=== PATIENT | male | born 1940 | race Caucasian/White ===

== ENCOUNTER 2018-06-23 11:07 | Emergency (ER) | payer OTHER, MEDICARE ==
[~2018-06-23] VITALS: Ht 162.6 cm; Wt 90.7 kg
[~2018-06-23 11:07] MED LIST: HYDR-4100 PO; NOR10 PO
[2018-06-23 11:10] VITALS: BP_SYST 150
[2018-06-23 12:12] LABS: BASOPHILS # (AUTO) 0.1 K/uL (0.0-0.2); BASOPHILS % (AUTO) 1.1 % (0.0-2.0); EOSINOPHILS % (AUTO) 0.2 % (0.0-4.0); HEMATOCRIT 44.9 % (36-54); HEMOGLOBIN 14.5 g/dL (14.0-18.0); LYMPHOCYTES # (AUTO) 1.1 K/uL (1.0-5.5); LYMPHOCYTES % (AUTO) 17.1 % (20.5-51.5); MEAN CORPUSCULAR HEMOGLOBIN 30 pg (27-31); MEAN CORPUSCULAR HGB CONC 32 % (32-36); MEAN CORPUSCULAR VOLUME 92 fL (79.0-98.0); MONOCYTES # (AUTO) 0.5 K/uL (0.0-1.0); MONOCYTES % (AUTO) 7.2 % (1.7-9.3); NEUTROPHILS # (AUTO) 4.8 K/uL (1.8-7.7); NEUTROPHILS % (AUTO) 74.4 % (40.0-70.0); PLATELET COUNT (AUTO) 282 K/uL (130-430); RED BLOOD CELL COUNT(AUTO) 4.87 MIL/uL (4.2-6.2); RED CELL DISTRIBUTION WIDTH 12.3 % (9.0-15.0); WHITE BLOOD COUNT (AUTO) 6.5 K/uL (4.8-10.8)
[2018-06-23 12:27] LABS: ANION GAP 8 (5-15); CALCIUM 9.8 mg/dL (8.4-11.0); CHLORIDE 103 mmol/L (98-107); CREATININE 1.32 mg/dL (0.55-1.30); GLUCOSE 127 mg/dL (70-99); POTASSIUM 4.2 mmol/L (3.5-5.1); SODIUM SERUM 137 mmol/L (136-145); UREA NITROGEN, BLOOD 18 mg/dL (8-21)
[2018-06-23 12:31] LABS: ALANINE AMINOTRANSFERASE 23 U/L (12-78); AMYLASE 38 U/L (0-100); ASPARTATE AMINOTRANSFERASE 23 U/L (10-37); LIPASE 123 U/L (73-393); TOTAL BILIRUBIN 0.8 mg/dL (0.0-1.0)
[2018-06-23 12:33] LABS: INR 1.1 (0.80-1.20); PROTHROMBIN TIME 10.9 SECS (9.5-12.5)
[2018-06-23 13:20] LABS: BILIRUBIN,URINE 1+ (NEGATIVE); CLARITY/URINE CLEAR (CLEAR); COLOR,URINE YELLOW (YELLOW); GLUCOSE,URINE NEGATIVE (NEGATIVE); KETONES,URINE 2+ (NEGATIVE); LEUKOCYTE ESTERASE ,URINE NEGATIVE (NEGATIVE); NITRITE, URINE NEGATIVE (NEGATIVE); PH,URINE 6.5 (5.0-8.0); PROTEIN URINE NEGATIVE (NEGATIVE)
[2018-06-23 13:23] LABS: BLOOD, URINE TRACE (NEGATIVE)
[2018-06-23 13:28] LABS: BACTERIA,URINE FEW /HPF (None Seen); MUCUS,URINE None Seen /LPF (None Seen); RBC,URINE 0-3 /HPF (0-3); WBC,URINE 0-3 /HPF (0-3)
[2018-06-23 14:33] VITALS: BP_SYST 149
== END 2018-06-23 14:33 | disposition home or self-care (01) ==
LOC: SED 11:07
DX: R10.30 Lower abdominal pain, unspecified (principal); R53.1 Weakness
CPT/HCPCS: 36415; 80053; 81000-TC; 82150-TC; 83605; 83690-TC; 85025; 85610-TC; 85730-TC; 99284

== ENCOUNTER 2022-12-05 07:54 | Emergency (ER) | payer OTHER, MEDICARE ==
[~2022-12-05] VITALS: Ht 182.9 cm; Wt 99.8 kg
[~2022-12-05 07:54] MED LIST changes: +HYDR-3927 PO; -HYDR-4100 PO
--- NOTE | 2022-12-05 08:00 | NUR ---
Placed in room 06 . Placed on equipment monitor phototypesetting, blood pressure machine and pulse oximeter. To gown for exam. Side rails up. Report given to MISTI LE.
[2022-12-05 08:01] VITALS: BP_SYST 139
--- NOTE | 2022-12-05 08:02 | NUR ---
DR SULLIVAN AT BEDSIDE FOR EVALUATION
--- NOTE | 2022-12-05 08:10 | NUR ---
PT STATES THAT HE HAD A TRIP AND FALL LAST NIGHT, BRUISING NOTED TO RIGHT SIDE RIBS. STATES SLIGHT DISCOMFORT TO RIGHT RIBS
[2022-12-05] MEDS ORDERED: HYDROcodone/ACETAMIN 10-325 MG TAB PO ONE (08:15)
[2022-12-05] MEDS ORDERED: IBUP-1971 PO (09:02)
[2022-12-05] MEDS ORDERED: OXYC-128 PO (09:03)
--- NOTE | 2022-12-05 09:14 | NUR ---
Patient given written and verbal discharge instructions and verbalizes understanding. ER MD discussed with patient the results and treatment provided. Patient in stable condition. ID arm band removed Rx of PERCOCET, IBUPROFEN given. Patient educated on pain management and to follow up with PMD. Pain Scale 0/10. Opportunity for questions provided and answered. Medication side effect fact sheet provided.
== END 2022-12-05 09:14 | disposition home or self-care (01) ==
LOC: SED 07:54
DX: S22.31XA Fracture of one rib, right side, initial encounter for closed fracture (principal); S20.211A Contusion of right front wall of thorax, initial encounter; Z79.899 Other long term (current) drug therapy; W18.40XA Slipping, tripping and stumbling without falling, unspecified, initial encounter; Y93.89 Activity, other specified; Y92.89 Other specified places as the place of occurrence of the external cause; Y99.8 Other external cause status
CPT/HCPCS: 71045; 71100; 99284